=== PATIENT | female | born 1995 | race Caucasian/White ===

== ENCOUNTER 2017-02-20 00:13 | Emergency (ER) | payer OTHER ==
[~2017-02-20] VITALS: Ht 160 cm; Wt 68.6 kg
[2017-02-20] MEDS ORDERED: BCP PO (00:22)
[2017-02-20] MEDS ORDERED: KETOROLAC 30 MG/ML VIAL (J1885) IV ONE (03:30)
[2017-02-20] MEDS ORDERED: IPRATROPIUM 0.5MG/ALBUTEROL 2.5MG INH SOL UD 3ML (DUONEB)(J7620) NEB ONE (03:30)
[2017-02-20 03:55] LABS: BASO % 0.5 % (0.0-1.0); EOS # 0.2 10^3/uL (0.0-0.50); EOS % 2.9 % (0.0-3.0); IMMATURE GRANULOCYTE % 0.2 % (0-0); LYMPH # 3.4 10^3/uL (1.5-6.5); LYMPH % 40.2 % (24.0-44.0); MEAN CORPUSCULAR HEMOGLOBIN 28.9 pg (27.0-33.0); MEAN CORPUSCULAR HGB CONC 32.3 g/dl (32.0-36.5); MEAN CORPUSCULAR VOLUME 89.5 fl (80.0-96.0); MONO # 0.8 10^3/uL (0.0-0.8); MONO % 9.3 % (0.0-5.0); NEUTROPHILS % 46.9 % (36.0-66.0); PLATELET COUNT, AUTOMATED 257 10^3/uL (150-450); RED CELL DISTRIBUTION WIDTH 12.9 % (11.5-14.5); WHITE BLOOD COUNT 8.4 10^3/uL (4.0-10.0)
[2017-02-20] MEDS ORDERED: ISOVUE-370 76% 100ML VIAL (Q9967) As Ordered ONE (04:12)
[2017-02-20 04:19] LABS: ANION GAP 6 MEQ/L (8-16); BLOOD UREA NITROGEN 19 MG/DL (7-18); CALCIUM LEVEL 8.6 MG/DL (8.5-10.1); CARBON DIOXIDE LEVEL 26 MEQ/L (21-32); CHLORIDE LEVEL 106 MEQ/L (98-107); CREATININE FOR GFR 1.03 MG/DL (0.55-1.02); GLOMERULAR FILTRATION RATE > 60.0 (>60); GLUCOSE, FASTING 95 MG/DL (70-105); HCG, SERUM QUANTITATIVE < 1.0 MIU/ML; POTASSIUM SERUM 4.2 MEQ/L (3.5-5.1); SODIUM LEVEL 138 MEQ/L (136-145)
--- NOTE | 2017-02-20 05:00 | REPUSA ---
CLINICAL HISTORY: Dyspnea, exclude PE. TECHNIQUE: Multiple incremental axial, coronal and oblique images are obtained from the thoracic inle t to the upper abdomen. Intravenous contrast material is not seen in the arteries. Contrast is noted in the pelvicalyceal system of the kidneys. COMMENTS: There is absence opacification of pulmonary arterial system. Aorta is of normal caliber without contr ast in its lumen. There is bilateral peribronchial interstitial thickening suggestive of bronchitis. There is no evidence of pleural or parenchymal mass. There are no pleural effusions. There is no evid ence of hilar or mediastinal lymphadenopathy. The heart and great vessels are within normal limits. Images of the upper abdomen demonstrate no evidence of adrenal mass. The bony structures are free of lytic or blastic lesions. IMPRESSION: No contrast in the arteries. Contrast is noted in the calyceal systems of the kidneys. Bronchitis. Thank you for your kind referral of this patient.
[2017-02-20 05:38] VITALS: BP 133/89
--- NOTE | 2017-02-20 08:05 | REP ---
Chest two views HISTORY: Chest pain Comparison: None The lungs are clear. The heart is normal in size. The pulmonary vasculature is normal in appearance. The bony structure is intact. IMPRESSION: No acute disease. Signed by Bernardo Coats MD 02/20/2017 07:56 A
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
== END 2017-02-20 05:47 | disposition home or self-care (01) ==
LOC: M ED 00:13
DX: R07.9 Chest pain, unspecified (principal); R05 Cough; Z79.3 Long term (current) use of hormonal contraceptives; Z87.09 Personal history of other diseases of the respiratory system
CPT/HCPCS: 71020; 71275; 80048; 84702; 85025; 93005; 94640; 96374; 99283; J1885; Q9967

== ENCOUNTER → 2017-11-23 | Outpatient (CLI) | payer OTHER ==
[~2017-11-23] MED LIST: METHACHOLINE KIT (J7674) INH
== END ==
LOC: M CARPUL 08:00
DX: R05 Cough (principal)